=== PATIENT | male | born 1985 | race Hispanic/Latino ===

== ENCOUNTER 2019-01-08 18:01 | Inpatient (IN) | payer BC ==
[~2019-01-08] VITALS: Ht 170.2 cm; Wt 108.9 kg
[2019-01-08] MEDS ORDERED: HYDROCODONE/APAP 5MG-325MG TAB PO NR (18:45)
[2019-01-08] MEDS ORDERED: TETANUS/DIPHTHERIA TOX ADULT 0.5 ML SYR IM ONE (18:45)
[2019-01-08] MEDS ORDERED: ACETAMINOPHEN 325 MG TAB PO PRN (19:45)
[2019-01-08] MEDS ORDERED: ONDANSETRON HCL INJ 2MG/ML 2ML 2 MG/ML VIAL IV PRN (19:45)
[2019-01-08] MEDS ORDERED: MORPHINE SULFATE INJ 4 MG/ML INJ 1ML IV PRN (20:15)
[2019-01-08 20:36] LABS: BASOPHILS % 0.3 % (0.0-1.0); EOSINOPHILS # (AUTO) 0.1 (0.0-0.4); EOSINOPHILS % 1.4 % (0.0-6.0); HEMATOCRIT 41.3 % (38.2-49.6); HEMOGLOBIN 14.3 g/dL (14.0-18.0); LYMPHOCYTES # (AUTO) 1.8 (1.0-3.2); LYMPHOCYTES % 22.7 % (18.0-39.1); MEAN CORPUSCULAR HEMOGLOBIN 28.9 pg (28-32); MEAN CORPUSCULAR HGB CONC 34.6 g/dL (31-35); MEAN CORPUSCULAR VOLUME 83.4 fL (81-99); MONOCYTES # (AUTO) 0.7 (0.2-0.8); MONOCYTES % 9.3 % (4.4-11.3); NEUTROPHILS # (AUTO) 5.1 (2.1-6.9); PLATELET COUNT 233 x10e3/uL (140-360); RED BLOOD COUNT 4.95 x10e6/uL (4.3-5.7); RED CELL DISTRIBUTION WIDTH 13.1 % (11.7-14.4)
[2019-01-08 20:57] LABS: ALANINE AMINOTRANSFERASE 17 IU/L (0-55); ALBUMIN 3.9 g/dL (3.5-5.0); ALBUMIN/GLOBULIN RATIO 1.1 (0.8-2.0); ALKALINE PHOSPHATASE 60 IU/L (40-150); ANION GAP 10.6 mmol/L (8-16); BLOOD UREA NITROGEN 12 mg/dL (7-26); BUN/CREATININE RATIO 13 (6-25); CALCIUM 9.5 mg/dL (8.4-10.2); CARBON DIOXIDE 28 mmol/L (22-29); CHLORIDE 102 mmol/L (98-107); CREATININE, SERUM 0.94 mg/dL (0.72-1.25); EST GLOMERULAR FILTRATION RATE > 60 ML/MIN (60-); GLUCOSE 93 mg/dL (74-118); MAGNESIUM 2.5 MG/DL (1.3-2.1); POTASSIUM 3.6 mmol/L (3.5-5.1); SODIUM 137 mmol/L (136-145)
[2019-01-08] MEDS: VANCOMYCIN 1GM/NS 250 ML 250 ML IV SCH (21:11)
[2019-01-08] MEDS: PIPER-TAZ 3.375 GM 50 ML IV SCH ×2 (21:11→23:21)
[2019-01-08] MEDS: SODIUM CHLORIDE 0.9% 1000ML 1,000 ML IV SCH (21:11)
[2019-01-08] MEDS ORDERED: CLINDAMYCIN HC300 MG PO (21:12)
--- NOTE | 2019-01-08 22:00 | NUR ---
received pt from ER to room 208, AAOx4, resp even and unlabored, no c/o pain or discomfort, large bump to right cooper red and warm, ambulates by self with steady gait, IV to left AC patent and intact with NS @100, consult to DR. Posadas called, bed in lowest and locked position, call light in reach
[2019-01-08 22:03] VITALS: BP 104/60
[2019-01-08 23:26] VITALS: BP 104/60
[2019-01-08 23:30] VITALS: BP 104/60
[2019-01-09] VITALS (7 sets, daily range): BP systolic 101–135; BP diastolic 49–79
[2019-01-09] MEDS: SODIUM CHLORIDE 0.9% 1000ML 1,000 ML IV SCH ×2 (03:38→07:48)
[2019-01-09 05:21] LABS: BASOPHILS % 0.3 % (0.0-1.0); EOSINOPHILS # (AUTO) 0.1 (0.0-0.4); EOSINOPHILS % 1.9 % (0.0-6.0); HEMATOCRIT 39.4 % (38.2-49.6); HEMOGLOBIN 13.3 g/dL (14.0-18.0); LYMPHOCYTES # (AUTO) 1.4 (1.0-3.2); LYMPHOCYTES % 22.5 % (18.0-39.1); MEAN CORPUSCULAR HEMOGLOBIN 28.1 pg (28-32); MEAN CORPUSCULAR HGB CONC 33.8 g/dL (31-35); MEAN CORPUSCULAR VOLUME 83.3 fL (81-99); MONOCYTES # (AUTO) 0.6 (0.2-0.8); MONOCYTES % 9.7 % (4.4-11.3); NEUTROPHILS # (AUTO) 4.2 (2.1-6.9); NEUTROPHILS % 65.4 % (38.7-80.0); PLATELET COUNT 209 x10e3/uL (140-360); RED BLOOD COUNT 4.73 x10e6/uL (4.3-5.7)
[2019-01-09] MEDS: PIPER-TAZ 3.375 GM 50 ML IV SCH ×3 (05:40→17:30)
[2019-01-09 05:44] LABS: ALANINE AMINOTRANSFERASE 15 IU/L (0-55); ALBUMIN 3.3 g/dL (3.5-5.0); ALBUMIN/GLOBULIN RATIO 1.1 (0.8-2.0); ALKALINE PHOSPHATASE 62 IU/L (40-150); ANION GAP 8.5 mmol/L (8-16); BLOOD UREA NITROGEN 11 mg/dL (7-26); BUN/CREATININE RATIO 14 (6-25); CALCIUM 8.7 mg/dL (8.4-10.2); CARBON DIOXIDE 26 mmol/L (22-29); CHLORIDE 106 mmol/L (98-107); CREATININE, SERUM 0.79 mg/dL (0.72-1.25); EST GLOMERULAR FILTRATION RATE > 60 ML/MIN (60-); GLUCOSE 99 mg/dL (74-118); POTASSIUM 3.5 mmol/L (3.5-5.1); SODIUM 137 mmol/L (136-145)
[2019-01-09] MEDS: VANCOMYCIN 1GM/NS 250 ML 250 ML IV SCH ×2 (08:35→20:30)
--- NOTE | 2019-01-09 13:48 | Diagnostic Imaging Report ---
MRI of the right tibia/fibula without contrast. History: Swelling. Trauma. Osteomyelitis. Technique: Multiplanar multisequence MRI of the right tibia/fibula without contrast. Comparison: None Findings: 5.0 x 3.0 x 2.0 cm lobular fluid collection localized to the anterior superficial fat just deep to the skin surface along the medial proximal lower leg at the level of the proximal tibia. Overlying skin thickening and soft tissue edema. This is consistent with an evolving hematoma/seroma with possible cellulitis. No underlying bone marrow edema or cortical destruction is seen to suggest osteomyelitis. No acute fracture, subluxation or avascular necrosis. No ligamentous or tendon tear. The visualized muscles are normal in size, signal intensity and morphology. The visualized neurovascular bundles are intact. Impression: 5.0 x 3.0 x 2.0 cm lobular fluid collection localized to the anterior superficial fat just deep to the skin surface along the medial proximal lower leg at the level of the proximal tibia. Overlying skin thickening and soft tissue edema. This is consistent with an evolving hematoma/seroma with possible cellulitis. No underlying bone marrow edema or cortical destruction is seen to suggest osteomyelitis Signed by: Dr. Edgard Souza M.D. on 01/09/2019 1:44 PM
[2019-01-09] MEDS ORDERED: ONDANSETRON HCL 4 MG ORAL DISINTEGRATING TAB PO PRN (17:00)
--- NOTE | 2019-01-09 18:45 | NUR ---
Walking rounds performed. All questions answered. Hand-off to date night caregiver. Patient is resting in bed with no signs of distress. Family at the bedside.
--- NOTE | 2019-01-09 19:15 | NUR ---
Patient visited in room during nursing rounds. Patient alert and oriented x3. at beside. Pt ambulatory and stated feels some pinching pain on cellulitis on right cooper (of right leg). Cellulitis appear like a reddened bump (Dr. Posadas aware). No request for pain med at this time. Call milligan within reach. Will monitor closely.
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
--- NOTE | 2019-01-09 20:20 | NUR ---
Received phone call from Dr. Posadas (Ortho) and was informed to obtain consent for Incision and Drainage to be done at bedside. Supplies placed at bedside.
--- NOTE | 2019-01-09 20:33 | NUR ---
Informed patient and patient's of procedure (I&D) to be done tonight by Dr. Posadas. Patient agreed to procedure and signed consent form.
[2019-01-09] MEDS ORDERED: LIDOCAINE HCL 1% LOCAL INJ 20 ML VIAL INJ NR ×2 (21:00)
--- NOTE | 2019-01-09 21:00 | NUR ---
Dr. Posadas came and was assisted by CN Rivera) to perform I & D procedure on patient's right leg (cooper area). After procedure, wound cultures obtained and covered with surgical dressing and luca bandage. Pt tolerated procedure well.
--- NOTE | 2019-01-09 21:38 | NUR ---
CONSULTATION - ORTHOPEDICS Mr. Stratton is a 33 year old male community ambulator without assistive devices who presented to me in the office with worsening right lower leg pain and swelling after hitting his leg. He attempted outpatient management with antibiotics however his leg continued to be painful and swell. He denies any presents fevers or chills, numbness, paresthesias or loss of distal motor function. He states he hit his leg before but did not have a problem like this before. PMdHx: Denies Allerigies: NKDA SurgHx: Denies FamHx: Non-contributory SocHx: No present EtOh, Drug or Tob Use VS 97.5, HR 71 RR 18, BP 118/68, O2 99% RA NAD, AAOx3 Right Lower Leg - improved erythema and swelling Palpable fluctuance over anterior border of mid tibia Motor: +EHL, FHL, TA, G/S Sensation grossly intact Pulses + DP, Post tib Compartments soft Negative posterior calf tenderness WBC 6.4 MRI demonstrated subcutanous hematoma/seroma of anterior tibia 33 year old male with Right Lower Leg Cellulitis and Infected Hematoma After obtaining informed consent the right lower leg was prepped and draped in sterile fashion. Under local anestheia with lidocaine, a small 2 cm incision wa s made over the fluctuant area. Immediate expression of purulent and necrotic material with hematoma was expressed. After thorough irrigation, the wound was packed with iodoform. A dressing was applied and the patient tolerated the procedure well. Plan to follow up cultures and labs He may WBAT Analgesics PRN Antibiotics as per medicine/ID DVT Prophylaxis Plan to remove 1 inch of packing daily with dressing changes DO FREEDOM [facility]
[2019-01-09] MEDS ORDERED: HYDROCODONE/APAP 5MG-325MG TAB PO PRN (21:45)
[2019-01-09] MEDS: HYDROCODONE/APAP 5MG-325MG TAB PO PRN (21:56)
--- NOTE | 2019-01-09 23:06 | NUR ---
Called Dr. Edwards and informed that patient's pain level did not wane down even after receiving [place] (5/325mg) 1 tab. aware and ordered Morphine 4mg IV Q4hr prn for severe pain.
[2019-01-09] MEDS ORDERED: MORPHINE SULFATE INJ 4 MG/ML INJ 1ML IV PRN (23:15)
[2019-01-10] MEDS: PIPER-TAZ 3.375 GM 50 ML IV SCH ×5 (00:29→23:10)
[2019-01-10 05:35] VITALS: BP 111/59
[2019-01-10 07:15] VITALS: BP 112/63
[2019-01-10 07:59] VITALS: BP 112/63
[2019-01-10] MEDS: HYDROCODONE/APAP 5MG-325MG TAB PO PRN ×2 (08:15→18:39)
[2019-01-10] MEDS: VANCOMYCIN 1GM/NS 250 ML 250 ML IV SCH ×2 (09:30→19:58)
--- NOTE | 2019-01-10 09:59 | NUR ---
PROGRESS NOTES - ORTHOPEDICS Patient seen & examined. Improved pain from last night. No fevers or chills. Feeling better VS 96.8 HR 57 RR 18 BP 112/63 O2 100% Right Lower Leg Dressing clean, dry and intact Improving erythema, packing still in place Motor: + EHL, FHL, TA, G/S Sensation grossly intact Pulses + DP, Post tib Compartments soft No calf tenderness ESR 26, WBC 6.4 33 year old male with right lower extremity hematoma with surrounding cellulitis s/p I&D POD#1 Continue Antibiotics as per ID & Medicine Analgesics DVT Prophylaxis PT WBAT Keep dressing clean dry and intact. Will start to advance packing tomorrow. Continue dry dressing changes with 4x4, gauze, ABD and TYRONE Wrap, changing gauze daily As long as patient continues to improve, he will be orthopedically stable for discharge Follow up Wound Cultures Please call for any questions Keyla Posadas, DO [facility]
[2019-01-10 12:00] VITALS: BP 122/72
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
[2019-01-10 16:00] VITALS: BP 132/88
--- NOTE | 2019-01-10 17:45 | Progress Note ---
DATE: Internal Medicine Progress Note SUBJECTIVE: The patient had an incision and drainage done on the left leg. We are waiting for the culture report. OBJECTIVE: VITAL SIGNS: Blood pressure 122/72, temperature 96.8, heart rate 93 per minute, respiratory rate is 20 per minute, oxygen saturation 98%. EXTREMITIES: Showed dressing on the left leg. LABORATORY DATA: On the BMP; sodium 137, potassium 3.5, chloride 106, CO2 26, BUN 11, creatinine 0.79, glucose 99. On CBC; white count 6.40, hemoglobin 13.3, hematocrit 39.4, and platelet count 209,000. AST 14, ALT 15, total bilirubin 0.6, alkaline phosphatase 62. Wound culture report is pending. PLAN OF TREATMENT: Treatment continue Zosyn 3.375 g IV q.6 hours, vancomycin 1 g IV twice a day, Tylenol 650 mg q.4 hours as needed, [place] 1 tablet q.4 hours as needed for [id number] pain, Zofran 4 mg IV q.4 hours as needed. Continue morphine 4 mg IV q.4 hours as needed for severe pain only. We are waiting for the wound culture report. Antibiotic treatment will be tailored according to the wound culture report. So, hopefully should we have the report tomorrow, the patient might be able to go home on oral antibiotic antibiotics. Dr. Marino is on the case for Infectious Diseases, Dr. Keyla Posadas is on the case for Orthopedic. Continue following the culture. MD CELIA Tam/ROMULO /[id number]
--- NOTE | 2019-01-10 19:05 | NUR ---
Patient visited in room during nursing rounds. Patient alert and oriented x3. No distress or discomfort noted. Dressing on left leg (cooper area) clean, dry and intact. No order from Dr. Posadas to change dressing at this time. and friends at bedside visiting. On scheduled IV antibiotics. Call milligan within reach.
[2019-01-10] MEDS: DOCUSATE SODIUM 100 MG CAP PO SCH (19:55)
[2019-01-10 20:00] VITALS: BP 137/79
[2019-01-11] VITALS (8 sets, daily range): BP systolic 112–130; BP diastolic 59–79
[2019-01-11] MEDS: PIPER-TAZ 3.375 GM 50 ML IV SCH ×4 (06:34→23:24)
--- NOTE | 2019-01-11 07:18 | NUR ---
Progress Notes - Orthopedics Patient seen & examined, pain controlled with analgesics. No fevers, chills, numbness, paresthesias or loss of distal motor function VS 96. HR 59, RR 18, BP 112/59, O2 98% Right lower extremity - dressing clean, dry and intact Erythema improving, no active drainage. Packing in place Motor: + EHL, FHL, TA, G/S Sensation grossly intact Pulses + DP, Post tib Compartments soft Negative calf tenderness BCx: NGTD, WCx: Pending 33 yo M s/p I&D of Right Lower Leg Hematoma & Cellulitis Continue antibiotics as per medicine Analgesics PRN Warm compresses to leg DVT Prophylaxis Dressing changed and packing advanced, patient educated on dressing change Patient improving at this time, orthopedically stable. Plan for follow up within 1 week. Call office for appointment DO FREEDOM [facility]
[2019-01-11] MEDS: DOCUSATE SODIUM 100 MG CAP PO SCH ×2 (08:13→17:58)
[2019-01-11] MEDS: VANCOMYCIN 1GM/NS 250 ML 250 ML IV SCH ×2 (08:13→20:42)
[2019-01-12] VITALS: BP 111/58
--- NOTE | 2019-01-12 03:17 | Discharge Summary ---
HOSPITAL COURSE: This is a 33 years old male, who has no past medical history, came here with an infected hematoma. He had incision and drainage and debridement done by Dr. Keyla Posadas, orthopedic surgeon. The wound culture showed Staphylococcus aureus without the final report. We are waiting on the final report to give appropriate antibiotic, so he might go home over the weekend. PHYSICAL EXAMINATION: VITAL SIGNS: Blood pressure 130/77, temperature 97.4, heart rate 73 per minute, respiratory rate 20 per minute, and oxygen saturation 96%. EXTREMITIES: Has a dressing on the right lower extremity. LABORATORY DATA: On the BMP, sodium 137, potassium 3.5, chloride 106, CO2 of 26, BUN 11, creatinine 0.79, glucose 99. On the CBC, white count 6.40, hemoglobin 13.3, hematocrit 39.4, and platelet count 209,000. AST 14, ALT 15, total bilirubin 0.6, alkaline phosphatase 62. FINAL IMPRESSION: Cellulitis and hematoma on the right leg, status post incision and drainage. PLAN OF TREATMENT: Continue Zosyn q.6 hours, vancomycin 1 g IV twice a day, Tylenol 650 mg q.4 hours as needed, [place] 1 tablet q.4 hours as needed, Zofran 4 mg q.4 hours as needed, morphine 4 mg IV q.4 hours as needed, and Colace [address] Marino, infectious disease physician will decide about what type of antibiotic he needs when he goes home. He has to follow with Dr. Keyla Posadas next week. MD CELIA Tam/ROMULO /[id number]
[2019-01-12 04:00] VITALS: BP 115/71
[2019-01-12] MEDS: PIPER-TAZ 3.375 GM 50 ML IV SCH ×2 (06:25→12:00)
[2019-01-12 08:35] VITALS: BP 103/64
[2019-01-12 08:50] VITALS: BP 103/64
[2019-01-12] MEDS: DOCUSATE SODIUM 100 MG CAP PO SCH (08:56)
[2019-01-12] MEDS: VANCOMYCIN 1GM/NS 250 ML 250 ML IV SCH (08:56)
[2019-01-12 12:38] VITALS: BP 125/86
[2019-01-12] MEDS ORDERED: CEPHALEXIN500 MG PO (12:42)
--- NOTE | 2019-01-12 14:00 | NUR ---
PIV removed with tip intact. all personal belongings, RX and d/c instructions in hand at time of d/c. wound care supplies given to patient to continue wound care at home. able to verbalize instructions on how to complete wound care of RLE cellulitis. escorted to exit, patient states he has private auto parked in parking lot.
== END 2019-01-12 14:02 | disposition home or self-care (01) | DRG 581 ==
LOC: ER 18:01 → ERHOLD 19:45 → MED/SURG2 21:53
PROVIDERS: ADMIT Internal Medicine; ATTEND Internal Medicine
PROC: 0J9N0ZZ Drainage of Right Lower Leg Subcutaneous Tissue and Fascia, Open Approach (ICD-10-PCS; principal; 2019-01-08)
DX: L03.115 Cellulitis of right lower limb (principal); S80.11XA Contusion of right lower leg, initial encounter; W31.89XA Contact with other specified machinery, initial encounter; Y93.H3 Activity, building and construction; B95.61 Methicillin susceptible Staphylococcus aureus infection as the cause of diseases classified elsewhere
CPT/HCPCS: 36415; 80053; 80202; 83605; 83735; 85025; 85651; 87040; 87071; 87186; 87205; 90471; 90714; 99284; J2001; J2270; J2543; J3370; J7030